=== PATIENT | female | born 1970 | race Two or more races ===

== ENCOUNTER 2021-02-07 11:30 | Outpatient (CLI) | payer OTHER | END 2021-02-07 23:59 | disposition home or self-care (01) | LOC: MSC 11:30 | PROVIDERS: ATTEND Internal Medicine | DX: M32.14 Glomerular disease in systemic lupus erythematosus (principal); R05 Cough; R53.83 Other fatigue; E83.9 Disorder of mineral metabolism, unspecified; Z86.16 Personal history of COVID-19; R10.32 Left lower quadrant pain; E78.5 Hyperlipidemia, unspecified; I10 Essential (primary) hypertension; Z79.52 Long term (current) use of systemic steroids; Z79.899 Other long term (current) drug therapy ==

== ENCOUNTER → 2021-04-18 | Outpatient (CLI) | payer OTHER | END | disposition home or self-care (01) | LOC: MSC 10:15 | PROVIDERS: ATTEND Internal Medicine | DX: M32.14 Glomerular disease in systemic lupus erythematosus (principal); N04.9 Nephrotic syndrome with unspecified morphologic changes; J91.8 Pleural effusion in other conditions classified elsewhere; Z98.890 Other specified postprocedural states; R06.02 Shortness of breath; Z99.81 Dependence on supplemental oxygen; R05 Cough; Z87.01 Personal history of pneumonia (recurrent); Z86.16 Personal history of COVID-19; E83.9 Disorder of mineral metabolism, unspecified; R10.32 Left lower quadrant pain; E78.5 Hyperlipidemia, unspecified; I10 Essential (primary) hypertension ==